=== PATIENT | female | born 1960 | race Caucasian/White ===

== ENCOUNTER → 2018-08-15 14:48 | Outpatient (CLI) | payer OTHER | END | disposition home or self-care (01) | LOC: D.CT 14:48 | DX: M54.16 Radiculopathy, lumbar region (principal) ==

== ENCOUNTER 2019-07-24 11:13 | Outpatient (CLI) | payer OTHER ==
[~2019-07-24] VITALS: Ht 167.6 cm; Wt 59.1 kg
--- NOTE | ~2019-07-24 | HEMODYNAMI ---
PATIENT:KEVON KIM MEDICAL RECORD: [id number] : 64 LOCATION:[facility] ADMISSION DATE: 07/24/19 Generatedon:07/24/201915:01 Patient name: KEVON KIM Patient #: [id number] SSN: : 1960 Date of study: 07/24/2019 Page: Of Hemodynamic Procedure Report Patient Data Patient Demographics Procedure consent was obtained First Name: KEVON Gender: Female Last Name: JUDY : 1960 Middle Initial: ZARA Age: 59 year(s) Patient #: [id number] Race: Additional ID: [id number] Contact details Address: [address] [place] [address] rd State: [place] City: [place] Zip code: [address] Past Medical History Allergies Allergen Reaction Date Comments Reported Other allergy 07/24/2019 AVOCADO, IODINE Admission Admission Data Admission Date: 07/24/2019 Admission Time: 11:13 Height (in.): 66 BSA: 1.67 (m2) Height (cm.): 167.64 BMI: 20.99 (kg/m2) Weight (lbs.): 130.07 Weight (kg.): 59 Lab Results Lab Result Date: 07/24/2019 Lab Result Time: 0:00 Biochemistry Name Units Result Min Max BUN mg/dl 21 --(----)-* 7 18 Creatinine mg/dl 0.6 --(*---)-- 0.6 1.3 CBC Name Units Result Min Max Hematocrit % 34.4 *-(----)-- 42 54 Hemoglobin g/dl 11.4 *-(----)-- 13.5 17.5 Procedure Procedure Types Cath Procedure Diagnostic Procedure PPM/ICD Permanent Pacer Generator Exg. Sedation Charges Moderate Sedation up to 15 minutes Procedure Description Procedure Date Procedure Date: 07/24/2019 Procedure Start Time: 14:37 Procedure End Time: 14:58 Procedure Staff Name Function Samuel Martino MD Performing Physician Nidia Escobar RT Monitor Teresa Cummins RT Scrub Fidelia Toussaintdarcibanner RT Monitor Cirilo Elizondo RN Nurse Ty Hi MD Assisting physician Procedure Data Cath Procedure Fluoroscopy Diagnostic fluoroscopy Total fluoroscopy Time: 0 time: 0 min min Estimated blood loss: 5 ml Procedure Complications No complications Procedure Medications Medication Administration Route Dosage 0.9% NaCl I.V. 100 ml/hr Oxygen etCO2 Nasal cannula 2 l/min Ancef (1Gm/50ml NS) I.V.P.B 1 g Ancef Irrigation Topical 1 g (1gm/500ml NS) Lidocaine 1% added to field 20 Versed I.V. 2 mg Fentanyl I.V. 100 mcg Versed I.V. 2 mg Fentanyl I.V. 100 mcg Versed I.V. 2 mg Versed I.V. 2 mg Fentanyl I.V. 100 mcg Hemodynamics Rest BSA: 1.67 (m2) HGB: 11.4 (g/dl) O2 Consumption: Estimated: 227.12 (ml/min) O2 Co nsumption indexed: Estimated:136 (ml/min/m) Heart Rate: 0 (bpm) Snapshots Pre Cath Intra NCS Post Cath Vital Signs Time Heart Resp SPO2 etCO2 NIBP (mmHg) Rhythm Pain Sedation Rate (ipm) (%) (mmHg) Status Level (bpm) 14:23:33 60 9 98 0 142/78(102) NSR 0 (11) 10(A) , No pain 14:27:45 60 15 95 0 127/79(94) NSR 0 (11) 10(A) , No pain 14:31:51 59 12 98 0 140/78(107) NSR 0 (11) 10(A) , No pain 14:36:01 60 17 98 0 132/76(96) NSR 0 (11) 10(A) , No pain 14:40:17 60 12 97 0 136/56(77) NSR 0 (11) 10(A) , No pain 14:44:27 66 15 75 0 98/64(75) NSR 0 (11) 9(A) , No pain 14:48:26 60 15 93 0 96/64(84) NSR 0 (11) 9(A) , No pain 14:52:24 59 16 96 0 103/66(84) NSR 0 (11) 9(A) , No pain 14:56:28 59 15 96 0 108/57(84) NSR 0 (11) 9(A) , No pain Medications Time Medication Route Dose Verified Delivered Reason Notes Effectiv eness by by 14:20:31 0.9% NaCl I.V. 100 Cirilo Cirilo Per ml/hr Mikhail Elizondo physician RN RN 14:20:43 Oxygen etCO2 2 Cirilo Cirilo for low 02 Nasal l/min Lorigan Lorigan sats cannula RN RN 14:21:01 Ancef I.V.P.B 1 g Cirilo Cirilo Per (1Gm/50ml Mikhail Elizondo physician NS) RN RN 14:21:26 Ancef Topical 1 g Cirilo Cirilo used for Irrigation Lorigan Lorigan procedure (1gm/500ml RN RN NS) 14:26:25 Lidocaine added 20ml Cirilo Cirilo for local 1% to vial Lorigan Lorigan anesthetic field x2 RN RN 14:35:58 Versed I.V. 2 mg Cirilo Cirilo for Lorigan Lorigan sedation RN RN 14:36:06 Fentanyl I.V. 100 Cirilo Cirilo for mcg Lorigan Lorigan sedation RN RN 14:36:49 Versed I.V. 2 mg Cirilo Cirilo for Lorigan Lorigan sedation RN RN 14:36:55 Fentanyl I.V. 100 Cirilo Cirilo for mcg Lorigan Lorigan sedation RN RN 14:38:17 Versed I.V. 2 mg Cirilo Cirilo for Lorigan Lorigan sedation RN RN 14:40:45 Versed I.V. 2 mg Cirilo Cirilo for Lorigan Lorigan sedation RN RN 14:40:52 Fentanyl I.V. 100 Cirilo Cirilo for mcg Lorigan Lorigan sedation RN functional manager Log Time Note 13:50:57 Cirilo Elizondo RN sent for patient. Start room use. 14:03:23 Informed consent obtained and on chart 14:04:07 Procedure Status Elective Heart Cath (OP). 14:04:09 Time tracking: Regular hours (M-F 7:00 - 5:00) 14:04:13 Plan of Care:Hemodynamics will remain stable., Cardiac rhythm will remain stable., Comfort level will be maintained., Respiratory function will remain adequate., Patient/ family verbilizes understanding of procedure., Procedure tolerated without complication., Recovers from procedure without complications.. 14:04:35 H&P Date Dictated: 07/17/2019 Within 30 days and on chart., H&P Addendum completed by physician on day of procedure. (MUST COMPLETE FOR ALL OUTPATIENTS). 14:05:13 Patient Weight : 130.07 lbs 14:05:59 Patient allergic to Other allergyAVOCADO, IODINE 14:06:24 Lab Result : BUN 21 mg/dl 14:06:24 Lab Result : Creatinine 0.6 mg/dl 14:06:24 Lab Result : Hemoglobin 11.4 g/dl 14:06:24 Lab Result : Hematocrit 34.4 % 14:06:37 Patient Height : 66 inches 14:06:47 Patient received from Pre/Post Procedure Room to CCL 3 Alert and oriented. Tansferred to table in Supine position. 14:06:48 Warm blankets applied, and valerio hugger turned on for patient comfort. 14:06:49 Correct patient and procedure confirmed by team. 14:06:49 ECG and BP/O2 sat monitors applied to patient. 14:07:47 [employer] accounting representative FLORENTIN DOVE present for procedure. 14:07:58 Pre-procedure instructions explained to patient. 14:07:59 Pre-op teaching completed and patient verbalized understanding. 14:08:01 Family in patients room. 14:08:03 Patient NPO since Midnight. 14:08:18 Is the patient allergic to Iodine/contrast media? Yes. 14:08:19 Was the patient premedicated? Yes 14:08:25 Previous problem with sedation/anesthesia? Yes NAUSEA 14:08:26 Snore? Yes 14:08:28 Sleep apnea? No 14:08:29 Deviated septum? No 14:08:30 Opens mouth fully? Yes 14:08:32 Sticks out tongue? Yes 14:08:38 Airway obstruction? No ? 14:08:40 Dentures? No ? 14:08:51 IV patent on arrival in left hand with 0.9% NaCl at [facility]. 14:08:53 Lab results completed and on chart. 14:09:28 Patient diabetic? No. 14:09:30 Patient not . Patient is over age 55. 14:09:33 Is patient on blood thinner?No 14:09:43 Right chest area was prepped with chlora-prep and draped in sterile fashion 14:09:43 Alarms reviewed by Ashok. N. 14:: Sharps counted by scrub and verified by R.N. 14:20:31 0.9% NaCl 100 ml/hr I.V. was administered by Cirilo Elizondo RN; Per physician; Verbal order read back and verified. :: Oxygen 2 l/min etCO2 Nasal cannula was administered by Cirilo Elizondo RN; for low 02 sats; Verbal order read back and verified. 14:21: Ancef (1Gm/50ml NS) 1 g I.V.P.B was administered by Cirilo Elizondo RN; Per physician; Verbal order read back and verified. 14:21: Ancef Irrigation (1gm/500ml NS) 1 g Topical was administered by Cirilo Elizondo RN; used for procedure; Verbal order read back and verified. 14:21:32 Vital chart was started 14:26:04 Use device set RAD PPM 14:26:05 2-0 Ticron Multipack ([id number]) opened to sterile field. 14:26:05 3-0 Vicryl Single Pack [id number] opened to sterile field. 14:26:06 5-0 Monocryl PS2 [id number] opened to sterile field. 14:26:06 Cautery Tip Physician Practice Manager opened to sterile field. 14:26:06 Cautery Pushbutton Pencil opened to sterile field. 14:26:07 Mepilex Dressing ([id number]) opened to sterile field. 14:26:23 [employer] TESS XT DR Generator [id number] opened to sterile field. 14:26:25 Lidocaine 1% 20ml vial x2 added to field was administered by Cirilo Elizondo RN; for local anesthetic; Verbal order read back and verified. 14:28:12 Pre sharps counted by scrub and verified by RN: Sutures: 7; Sponges: 5; Stick needles: 2; Skin needles: 0; Blade: 1; Cautery: 1 14:28:14 Grounding pad site Left thigh. 14:28:15 Grounding pad site free from injury. 14:30:15 Baseline sample Acquired. 14:30:17 Baseline sample Acquired. 14:30:23 Baseline sample Acquired. 14::46 Rhythm: sinus bradycardia, paced 14:30:47 Full Disclosure recording started 14:33:46 Physician arrived 14:33:48 --------ALL STOP TIME OUT------ 14:33:50 Final Timeout: patient, procedure, and site verified with staff and physician. All members of the team are in agreement. 14:33:57 Right chest site verified by team. 14:34:08 Fire Safety Assessment: A--An alcohol-based skin anteseptic being used preoperatively., B--The operative or invasive procedure is being performed above the xiphoid process or in the oropharynx., C--Open oxygen or nitrous oxide is being used. 14:34:15 Physical assessment completed. ASA score P 2 - A patient with mild systemic disease as per Samuel Martino MD. 14:34:23 Sedation plan: IV Moderate Sedation Medication:Versed, Fentanyl 14:35:58 Baseline sample Acquired. 14:35:58 Versed 2 mg I.V. was administered by Cirilo Elizondo RN; for sedation; Verbal order read back and verified. 14:36:06 Fentanyl 100 mcg I.V. was administered by Cirilo Elizondo RN; for sedation; Verbal order read back and verified. 14:36:49 Procedure started. 14:36:49 Versed 2 mg I.V. was administered by Cirilo Elizondo RN; for sedation; Verbal order read back and verified. 14:36:55 Fentanyl 100 mcg I.V. was administered by Cirilo Elizondo RN; for sedation; Verbal order read back and verified. 14:37:31 Lidocaine 1% was administered to right subclavicular area by Ty Hi MD . 14:38:17 Versed 2 mg I.V. was administered by Cirilo Elizondo RN; for sedation; Verbal order read back and verified. 14:39:19 Incision made to right subclavicular area. 14:40:45 Versed 2 mg I.V. was administered by Cirilo Elizondo RN; for sedation; Verbal order read back and verified. 14:40:52 Fentanyl 100 mcg I.V. was administered by Cirilo Elizondo RN; for sedation; Verbal order read back and verified. 14:42:02 Generator pocket made/opened. 14:47:35 PPM Dual was removed.. 14:47:40 PPM Dual was inserted subcutaneously to right chest. 14:47:47 Device pocket was irrigated with Ancef. 14:47:55 Atrial lead attachment was completed with 2-0 ticron. 14:48:09 Ventricular lead attachment was completed with 2-0 ticron. 14:48:20 Generator was sutured in place with 2-0 ticron. 14:48:35 Subcutaneous closure was completed with 3-0 vicryl. 14:48:42 Skin closure was completed with 5-0 monocryl. 14:52:56 Parameters-- Generator: Mode: AAI/DDD. Lower Rate: 60bpm. Upper Rate: 130bpm. 14:53:46 Procedure ended.(Physican Out) 14:54:14 Post sharps counted by scrub and verified by RN: Sutures: 7; Sponges: 5; Stick needles: 2; Skin needles: 0; Blade: 1; Cautery: 1 14:54:31 Rt Chest incision was dressed with Mepilex dressing. 14:55:07 Fluoroscopy time 00.00 minutes. 14:55:11 Sharps counted by scrub and verified by R.N. 14:55:15 Insertion/operative site no bleeding no hematoma. 14:55:31 Post-procedure physical assessment completed. ASA score P 2 - A patient with mild systemic disease as per Samuel Martino MD. 14:55:42 Post procedure rhythm: unchanged. 14:55:47 Estimated blood loss: 5 ml 14:55:50 Post procedure instruction explained to patient.Patient verbalizes understanding. 14:55:51 Patient needs reinforcement of post procedure teaching. 14:56:36 Procedure type changed to Cath procedure, Diagnostic procedure, PPM/ICD, Permanent Pacer Generator Exg., Sedation Charges, Moderate Sedation up to 15 minutes 14:56:39 Procedure and supply charges have been captured, reviewed, submitted and are correct. 14:57:32 Procedure Complication : No complications 14:57:38 Vital chart was stopped 14:58:00 Operative report dictated upon procedure completion. 14:58:01 See physician's report for complete and final results. 14:58:23 Report given to Pre/Post Procedure Room. 14:58:30 Patient transfered to Pre/Post Procedure Room with Stretcher. 14:58:33 Procedure ended. 14:58:33 Full Disclosure recording stopped 14:58:37 End room use (Document Last) Device Usage Item Name Manufacture Quantity Catalog Hospital Part Current Minima l Lot# / Number Charge Number Stock Stock Serial# Code 2-0 Ticron Ethicon 4 [id number] [id number] 5 Multipack ([id number]) 3-0 Vicryl Ethicon 1 [id number] [id number] 5 Single Pack [id number] 5-0 Monocryl Ethicon 1 [id number] [id number] [id number] 5 PS2 Y495G Cautery Tip [employer] 1 [id number] [id number] [id number] 5 Physician Practice Manager [employer] Cautery Microtek 1 [id number] [id number] 5 Push[employer] Pencil Mepilex Cardinal 1 [id number] [id number] [id number] 5 Dressing Health ([id number]) Medtronic Medtronic 1 [id number] [id number] EXP: Generator 12/25/2020 [id number] Signature Audit [place] Stage Time Signature Unsigned Intra-Procedure 07/24/2019 Fidelia 2:59:16 PM Hugo RT(R) (CV) Intra-Procedure 07/24/2019 Cirilo 3:00:23 PM Mikhail RIZZO Intra-Procedure 07/24/2019 Samuel Colon 3:01:05 PM Kwan [id number] [place] [address]
[2019-07-24] MEDS ORDERED: ZYRTEC10 MG PO (11:27)
[2019-07-24] MEDS ORDERED: BUPROPION HCL150 M1 PO (11:28)
[2019-07-24] MEDS ORDERED: BAYER CHEWABLE81 MG PO (11:28)
[2019-07-24] MEDS ORDERED: TRAZODONE HCL150 MG PO (11:29)
[2019-07-24] MEDS ORDERED: DILTIAZEM 24HR360 M4 PO (11:29)
[2019-07-24] MEDS ORDERED: VITAMIN B-122500 MCG PO (11:29)
[2019-07-24] MEDS ORDERED: CATAPRES0.1 MG PO (11:30)
[2019-07-24] MEDS ORDERED: LASIX20 MG PO (11:31)
[2019-07-24] MEDS ORDERED: CYCLOBENZAPRINE10 MG PO (11:31)
[2019-07-24] MEDS ORDERED: NAPROSYN500 MG PO (11:32)
[2019-07-24 11:50] VITALS: BP 140/67; Ht 167.6 cm; Wt 59.1 kg
[2019-07-24 12:23] LABS: HEMATOCRIT 34.4 % (36.0-48.0); HEMOGLOBIN 11.4 g/dL (12-16); MCH 31.8 pg (26.0-34.0); MCHC 33.1 g/dL (31.0-37.0); MCV 95.8 fL (80.0-100.0); MEAN PLATELET VOLUME 9.2 fL (7.4-10.4); RBC 3.59 10x6/uL (4.00-5.40); RDW 12.8 % (11.5-14.5); WBC 7.9 10x3/uL (4.8-10.8)
[2019-07-24 12:32] LABS: CALC OSMOLALITY 282 mosm/kg (275-300); CALCIUM 8.9 mg/dL (8.5-10.1); CARBON DIOXIDE 27.5 mmol/L (21.0-32.0); CHLORIDE - SERUM 104 mmol/L (98-107); CREATININE - SERUM 0.6 mg/dL (0.6-1.3); GLUCOSE 109 mg/dL (74-106); POTASSIUM - SERUM 3.9 mmol/L (3.5-5.1); SODIUM 140 mmol/L (136-145); UREA NITROGEN 21 mg/dL (7-18); eGFR NON AFRICAN AMERICAN > 90 mL/min (90-120)
[2019-07-24 13:23] LABS: INR 1.02 (0.85-1.17); PROTIME 12.9 SECONDS (11.6-15.0)
--- NOTE | 2019-07-24 15:10 | NUR ---
PT RECEIVED VIA SHAWANDA FROM COST CLERK POST PACEMAKER GEN EXCHANGE. PT AWAKE AND ALERT, DENIES PAIN OR NAUSEA. PT PLACED ON CARDIAC MONITORS. HR PACED AT 68, BP 116/77, RR 11, SAT 97 ON ROOM AIR. R UPPER CHEST W MEDIPLEX DRESSING, CDI. DR WHITE IN AND SPOKE W PT AND . CALL LIGHT IN REACH. SANDWICH AND DRINK SERVED.
--- NOTE | 2019-07-24 15:30 | NUR ---
PT SITTING UP EATING, VSS. PT DENIES PAIN OR DISCOMFORT. R UPPER CHEST DRESSING CDI. CALL LIGHT IN REACH. AT BEDSIDE.
--- NOTE | 2019-07-24 15:50 | NUR ---
DISCHARGE INSTRUCTIONS REVIEWED W PT AND , BOTH VERBALIZED UNDERSTANDING. IV REMOVED W CATH INTACT. MONITORS REMOVED AND PT UP TO DRESS FOR DISCHARGE. 1555 PT AMBULATED TO BR, VOIDING W/O DIFFICULITY
--- NOTE | 2019-07-24 16:04 | NUR ---
PT DISCHARGED VIA WC TO WAITING IN PRIVATE VEHICLE. PT HAD ALL BELONGINGS AND DISCHARGE PAPERWORK.
== END 2019-07-24 16:00 | disposition home or self-care (01) ==
LOC: D.CATH 11:13
PROVIDERS: ATTEND Internal Medicine Interventional Cardiology
DX: T82.191A Other mechanical complication of cardiac pulse generator (battery), initial encounter (principal); Y83.9 Surgical procedure, unspecified as the cause of abnormal reaction of the patient, or of later complication, without mention of misadventure at the time of the procedure

== ENCOUNTER → 2020-02-15 10:18 | Outpatient (CLI) | payer OTHER ==
[2019-07-24 11:50] VITALS: BMI 21.0
[~2020-02-15 10:18] MED LIST: BAYER CHEWABLE81 MG PO; BUPROPION HCL150 M1 PO; CATAPRES0.1 MG PO; CYCLOBENZAPRINE10 MG PO; DILTIAZEM 24HR360 M4 PO; LASIX20 MG PO; NAPROSYN500 MG PO; TRAZODONE HCL150 MG PO; VITAMIN B-122500 MCG PO; ZYRTEC10 MG PO
== END | disposition home or self-care (01) ==
LOC: D.HCCECHO 10:00
PROVIDERS: ATTEND Internal Medicine Interventional Cardiology
DX: I49.9 Cardiac arrhythmia, unspecified (principal)